=== PATIENT | male | born 1970 | race African-American/Black ===

== ENCOUNTER → 2019-05-21 12:29 | Outpatient (CLI) | payer BC, SELFPAY ==
[2019-05-21 13:12] LABS: Influenza A - CEPHEID Flu A NEGATIVE (NEGATIVE); Influenza B - CEPHEID Flu B NEGATIVE (NEGATIVE)
== END ==
PROVIDERS: Visit Provider Nurse Practitioner
DX: R68.89 Other general symptoms and signs (principal)
CPT/HCPCS: 87502